=== PATIENT | female | born 1990 ===

== ENCOUNTER 2023-07-18 14:00 | Day surgery (SDC) | payer OTHER ==
[2023-07-14 14:40] LABS: PH,URINE 5.5 (5.0-8.0); URINE APPEARANCE Clear; URINE BILIRRUBIN Negative (NEGATIVE); URINE BLOOD Small; URINE COLOR Yellow; URINE GLUCOSE Negative (NEGATIVE); URINE LEUKOCYTE Negative; URINE NITRATE Negative; URINE PROTEIN Negative (NEGATIVE); URINE UROBILINOGEN 0.2 E.U./dl
[2023-07-14 14:41] LABS: URINE BACTERIA 1297.6 uL (0.0-1933); URINE EPITHELIAL CELLS 28.8 uL (0.0-38.8); URINE RBC 26.2 uL (0.0-20.8); URINE WBC 6.7 uL (0.0-23.2)
[2023-07-14 14:42] LABS: HEMATOCRIT 41.7 % (36.0-45.00); HEMOGLOBIN 14.6 g/dL (12.0-15.00); MEAN CELL VOLUME 91.7 fL (80.00-100.00); MEAN CORPUSCULAR HEMOGLOBIN 32.1 pg (27.00-32.0); PLATELET COUNT 335 K/uL (150-450); RED BLOOD COUNT 4.55 M/uL (4.00-6.00); RED CELL DISTRIBUTION WIDTH 11.6 % (11.5-14.5)
[2023-07-14 15:05] LABS: ALBUMIN 3.7 gm/dL (3.4-5.0); BILIRUBIN TOTAL 0.48 mg/dL (0.3-1.2); CALCIUM 9.5 mg/dL (8.5-10.1); CREATININE SERUM 0.62 mg/dL (0.55-1.02); GFR 110.19; POTASSIUM 4.12 mEq/L (3.5-5.1); TOTAL PROTEIN 7.7 gm/dL (6.4-8.2)
[2023-07-14 16:38] LABS: INR 0.96; PARTIAL THROMBOPLASTIN TIME 27.9 SECONDS (22.0-34.0); PROTHROMBIN TIME 10.1 SECONDS (9.0-11.5)
[~2023-07-18 14:00] MED LIST: ATORVASTATIN CA10 MG PO; SPRINTEC 28 DA1 EACH PO
== END 2023-07-18 20:50 | disposition home or self-care (01) ==
LOC: CIR.AMB 14:00
PROVIDERS: ATTEND Specialist
DX: Z30.2 Encounter for sterilization (principal); Z64.1 Problems related to multiparity; N73.6 Female pelvic peritoneal adhesions (postinfective); N83.8 Other noninflammatory disorders of ovary, fallopian tube and broad ligament